=== PATIENT | female | born 2000 | race Caucasian/White ===

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

== ENCOUNTER 2019-07-11 18:57 | Emergency (ER) | payer OTHER ==
[~2019-07-11] VITALS: Ht 180.3 cm; Wt 108.9 kg
[~2019-07-11 18:57] MED LIST changes: +FLAGYL500 M1 PO
[2019-07-11 19:35] LABS: URINE BILIRUBIN NEGATIVE (Negative); URINE BLOOD NEGATIVE (Negative); URINE CLARITY SL CLOUDY; URINE COLOR YELLOW; URINE GLUCOSE-RANDOM NEGATIVE (Negative); URINE KETONES NEGATIVE (Negative); URINE LEUKOCYTES-REFLEX NEGATIVE (Negative); URINE NITRITE-REFLEX NEGATIVE (Negative); URINE PROTEIN NEGATIVE (Negative); URINE UROBILINOGEN 0.2 E.U./dl (0.2-1.0)
[2019-07-11 20:23] VITALS: BP 149/63
== END 2019-07-11 20:24 | disposition home or self-care (01) ==
LOC: M.ERS 18:57
PROVIDERS: Emergency Medicine
DX: N91.2 Amenorrhea, unspecified (principal); N64.4 Mastodynia; G43.909 Migraine, unspecified, not intractable, without status migrainosus; F90.9 Attention-deficit hyperactivity disorder, unspecified type